=== PATIENT | male | born 1950 | race Caucasian/White ===

== ENCOUNTER → 2023-11-30 06:10 | Day surgery (SDC) | payer MEDICARE, OTHER, SELFPAY ==
[2023-11-30 08:27] LABS: Glucose - Point of Care 111 mg/dl (70-99)
== END ==
LOC: GI 06:10
PROVIDERS: ATTENDING PHYSICIAN Internal Medicine Gastroenterology
DX: Z12.11 Encounter for screening for malignant neoplasm of colon (principal); Z86.010 Personal history of colon polyps; K64.8 Other hemorrhoids; K57.30 Diverticulosis of large intestine without perforation or abscess without bleeding
CPT/HCPCS: G0105; 82962